=== PATIENT | male | born 1985 | race Caucasian/White ===

== ENCOUNTER → 2017-11-15 15:03 | Outpatient (CLI) | payer OTHER, SELFPAY | PROVIDERS: Visit Provider Physician Assistant | DX: R07.0 Pain in throat (principal) | CPT/HCPCS: 87081 ==

== ENCOUNTER 2023-04-20 09:45 | Emergency (ER) | payer OTHER, SELFPAY ==
[2023-04-20 09:46] VITALS: BP 166/101; PULSE 108; RESP 16; TEMP 36.7; O2SAT 100; BMI 42.0
--- NOTE | 2023-04-20 10:25 | CT_ITS ---
STUDY: CT ABDOMEN AND PELVIS WITH CONTRAST REASON FOR EXAM: Male, 37 years old. Umbilical hernia RADIATION DOSAGE (If Supplied By Facility): CTDIvol = ( 15.38 ) mGy, DLP = ( 1597.98 ) mGycm TECHNIQUE: IV 100mL Isovue-370 was administered. Transaxial images were obtained from the dome of the diaphragm to the symphysis pubis. Multiplanar coronal and sagittal images were reformatted. Individualized Dose Optimization Techniques Were Used For This CT. COMPARISON: No relevant prior comparison study available FINDINGS: The visualized lung bases are unremarkable. The visualized portions of the heart are within normal limits. Hepatic steatosis. 3.5 cm enhancing lesion in the dome of the liver could be due to hemangioma but difficult to accurately characterize at this time. Normal gallbladder and extrahepatic biliary system. Normal spleen. Normal pancreas. Normal bilateral adrenal glands. Normal visualized stomach. Normal in caliber small bowel loops. Fecal retention. No evidence of acute diverticulitis. The descending colon is not well distended. There is non-visualization of the appendix. No evidence of abdominal aortic aneurysm. No retroperitoneal adenopathy. Normal right kidney. Normal left kidney. Normal urinary bladder. Umbilical hernia containing fat. Mild degenerative changes of the spine. Posterior degenerative spur at the level of L5-S1. CT/Abdomen/Pelvis W IV Cont ONLY IMPRESSION: 1. No focal acute inflammatory process. 2. Umbilical hernia containing fat. 3. Enhancing right lobe liver lesion likely due to hemangioma. Correlation with nonemergent multiphase CT scan of the liver is recommended. 4. Hepatic steatosis. Electronically Signed: Maik Dominique MD at 12:10 [facility] ,
--- NOTE | 2023-04-20 10:25 | RAD_ITS ---
INDICATION: cough EXAMINATION/TECHNIQUE: X-RAY - XR Chest 1 View COMPARISON: Prior study dated: 07/13/2016. FINDINGS: LINES/DEVICES: None. LUNGS: No consolidation, edema or effusion. No pneumothorax. Hypoventilatory changes in the right lung base. MEDIASTINUM AND CARDIOVASCULAR STRUCTURES: Cardiac silhouette not enlarged. Central airways and mediastinal contour are unremarkable. BONES AND SOFT TISSUES: Unremarkable. RAD/Chest 1 View (Portable) IMPRESSION: No radiographic evidence of acute cardiopulmonary disease. Electronically Signed: Maik Dominique MD at 11:56 EST ,
--- NOTE | 2023-04-20 10:27 | ED.VIS.GI ---
HPI HPI - GI History of Present Illness Chief Complaint: Abd Pain Informant: patient Abdominal Pain/Flank Pain Onset: Today Context: Sudden Onset Timing: Continuous Location: - (Umbilical pain) Current Severity: Moderate Maximum Severity: Moderate Nausea/Vomiting/Emesis GI Symptom: Negative for Nausea or Vomiting Diarrhea/Melena/Hematochezia GI Symptom: Negative for Diarrhea, Melena or Hematochezia Associated Symptoms Associated Symptoms: Negative for Dysuria, Frequency or Hematuria Narrative Narrative: 37-year-old male prior appendectomy. History of hypertension for which he is on medications. Has had URI symptoms since Saturday. Fever. Today he noticed a bulge above his umbilicus. And abdominal pain. He did not eat anything this morning. He denies nausea, vomiting or diarrhea. No dysuria. He has had a fever. Prior similar symptoms: No Recent Illness/Hospitalization: No PFSH PFSH Home Medications cyclobenzaprine 10 mg tablet 10 mg PO TID PRN muscle spasm #20 tabs 07/16/18 [Rx Last Taken Unknown] ibuprofen 200 mg capsule 200 mg PO TID-QID PRN 07/16/18 [History Last Taken Unknown] prednisone 20 mg tablet 20 mg PO DAILY #18 tabs 07/16/18 [Rx Last Taken Unknown] Allergy/AdvReac Type Severity Reaction Status Date / Time No Known Allergies Allergy Verified 04/20/23 09:47 Family History Mother Cancer Breast cancer Heart disease Father Prostate cancer Surgical History History of appendectomy Social History Smoking Status: Current some day smoker tobacco type: pipe and cigars alcohol intake: current alcohol intake frequency: a few times a month Alcohol type: beer ROS ROS ED ROS Narrative . Fever. Abdominal pain. Review of Systems ROS Unobtainable: Denies due to encephalopathy Constitutional Constitutional ED: Reports fever(s); Denies chills ENT ENT ED: Denies ear pain Cardiovascular Cardiovascular: Denies chest pain Respiratory/Chest Respiratory/Chest: Reports cough; Denies dyspnea Gastrointestinal Gastrointestinal: Reports abdominal pain; Denies constipation, diarrhea, melena, nausea or vomiting Genitourinary Genitourinary ED: Denies dysuria or hematuria Musculoskeletal Musculoskeletal: Denies arthralgias Integumentary Denies abscess Neurologic Neurologic: Denies headache(s) Psychiatric Psychiatric: Denies anxiety Endocrine Endocrinology: Denies polydipsia Hematologic/Lymphatic Hematologic/Lymphatic: Denies easy bleeding Allergic/Immunologic Allergic/Immunologic ED: Denies mouth swelling EXAM Physical Exam Narrative Exam Narrative: 37-year-old male vital signs stable afebrile. HEENT exam unremarkable. Moist extremities. Neck nontender no lymphadenopathy. Lungs clear to auscultation bilaterally. No rales, rhonchi or wheezing. Equal symmetrical. Dry cough. Heart regular rhythm rate about 108 no murmur. Chest wall and ribs nontender. Abdomen soft. Nondistended. He has what appears to be a incarcerated hernia just proximal to his umbilicus and umbilical hernia also. The ventral hernia is tender to palpation at this time not reducible. Otherwise his abdomen is nontender. He has bowel sounds. No peritoneal signs. He is moving all 4 extremities. Nontender. He is awake and alert. Const Vital Signs: 04/20/23 09:46 Temperature 98.0 F Temperature Source Temporal Pulse Rate 108 H Respiratory Rate 16 Blood Pressure 166/101 H Blood Pressure Mean 122 Pulse Ox 100 Oxygen Delivery Method Room Air Positive well nourished and well developed; Negative for cachectic, contractures or unkempt General Appearance ED: well developed and NAD; Negative for unkempt, cachectic, contractures or pallor Nutritional Appearance: Negative for cachectic HEENT Reports moist mucous membranes normocephalic and atraumatic; Negative for trauma or tenderness Eyes PERRL and EOMs intact bilaterally General Eye ED: Negative for pale conjunctiva or scleral icterus Neck no lymphadenopathy, supple and no JVD General: Negative for tenderness Carotids: Negative for other Lymph Lymphatic: Negative for other Resp normal respiratory effort and clear to auscultation bilaterally Resp Narrative: Dry cough. Effort and Inspection: Negative for respiratory distress Auscultation: Negative for rales, rhonchi or wheezes Cardio regular rhythm, S1 normal heart sound, S2 normal heart sound and no murmurs; Negative for regular rate Rate: tachycardic Rhythm: Negative for abnormal rhythm GI non-distended and no masses; Negative for non-tender GI Narrative: Tender ventral hernia just proximal to the umbilicus. Appears to be an incarcerated ventral hernia. Inspection: Negative for abdominal distention Auscultation: normoactive bowel sounds Palpation: soft, tender and hernia; Negative for rigid, hepatomegaly, splenomegaly, mass, pulsatile mass or rebound tenderness present Back/Spine no CVA tenderness General Back: Negative for CVA tenderness Cervical Spine: Negative for cervical spine tenderness Thoracic Spine / Upper Back: Negative for thoracic spinal tenderness Lumbar Spine / Lower Back: Negative for lumbar spinal tenderness Coccyx: Negative for other Extremity full ROM General Extremety ED: Negative for edema or tenderness General Extremity: Negative for edema Neuro CN's II-XII intact bilaterally, moves all extremities and no sensory deficits noted Sensorium / Orientation: alert, oriented to person, oriented to place and oriented to time; Negative for orientation impaired, confused, lethargic or stuporous Motor Exam: strength 5/5 throughout Psych mental status grossly normal and thought process normal Appearance: Negative for unkempt Attitude: No agitated Mood & Affect: Negative for depressed, anxious or tearful Skin no wounds General Skin Exam: Negative for jaundice or pallor Lesions: no lesions Rashes: no rashes Trauma: Negative for abrasion Nails: Negative for discolored MDM MDM MDM Narrative Medical decision making narrative: 37-year-old male has URI symptoms. He has developed abdominal pain and what appears to be an incarcerated ventral hernia today. He may have a longstanding umbilical hernia. We treated with morphine and Zofran. IV fluids. I am getting a CAT scan not to diagnose the hernia but because he is also had fever which I think is from the URI but I want to rule out any type of abdominal infection and/or obstruction. I have already spoken to general surgery Dr. Andrew Yusuf. I am also getting a chest x-ray due to his cough and fever. Around 11 AM I was able to manually reduce his ventral hernia. Pain improved. Patient is doing well at 12:20 PM. I went over his test results with he and his . His CAT scan. He is also COVID-positive. I spoke to general surgery he would prefer to do his hernia repairs electively as an outpatient after he gets over COVID. Patient and are comfortable with the plan. Motrin and Tylenol for pain. Return if feeling worse. Fluids and rest. History & Record Review Discussion w/independent historian: Patient and Family Additional record(s) reviewed:: Prior inpatient record, Prior outpatient record, Prior ED visit and Prior labs Lab Data Attestation: I reviewed the patient's lab results. Lab results narrative: BC normal. White count of 5.5. H&H 14 and 44. Platelets 210. Electrolytes show a gap of 5 normal BUN of 13 creatinine 1.2. Glucose 157. Labs: Laboratory Results - last 24 hr 04/20/23 10:40 WBC 5.5 RBC 5.35 Hgb 14.6 Hct 44.9 MCV 83.9 MCH 27.3 MCHC 32.5 RDW Std Deviation 40.0 RDW Coeff of [place] 13.2 Plt Count 210 MPV 9.9 Immature Gran % (Auto) 0.400 Neut % (Auto) 63.0 Lymph % (Auto) 20.0 [place] % (Auto) 16.1 H Eos % (Auto) 0.0 Baso % (Auto) 0.5 Absolute Neuts (auto) 3.4 Absolute Lymphs (auto) 1.09 Nucleated RBC % 0 Sodium 137 Potassium 4.1 Chloride 105 Carbon Dioxide 27.0 Anion Gap 5 BUN 13 Creatinine 1.21 Estim Creat Clear Calc 99.07 Est GFR (MDRD) Af Amer 88 Est GFR (MDRD) Non-Af 72 BUN/Creatinine Ratio 10.7 Glucose 157 H Calcium 9.0 Radiography Diagnostic Testing: Clinical Impression(s) from Imaging Studies Abdomen/Pelvis CT 04/20/23 10:25 IMPRESSION: 1. No focal acute inflammatory process. 2. Umbilical hernia containing fat. 3. Enhancing right lobe liver lesion likely due to hemangioma. Correlation with nonemergent multiphase CT scan of the liver is recommended. 4. Hepatic steatosis. Electronically Signed: Maik Dominique MD at 12:10 EST , Chest X-Ray 04/20/23 10:25 IMPRESSION: No radiographic evidence of acute cardiopulmonary disease. Electronically Signed: Maik Dominique MD at 11:56 EST , Discharge Plan Triage Chief Complaint: Abd Pain ED Provider: Deshawn Valentino Dx/Rx/DC Orders Clinical Impression: COVID, Hernia, umbilical, Ventral hernia Instructions: Human Coronaviruses, ED Hernia (Adult) Prescriptions: No Action ibuprofen 200 mg capsule 200 mg PO TID-QID PRN cyclobenzaprine 10 mg tablet 10 mg PO TID PRN (Reason: muscle spasm) Qty: 20 0RF Rx Instructions: to be taken only after work hours on work days prednisone 20 mg tablet 20 mg PO DAILY Qty: 18 0RF Rx Instructions: 3 tablets daily for 3 days, then 2 tablets daily for 3 days, then 1 tablet daily for 3 days Primary Care Provider: Sven Dallas Referrals: Colin Yusuf MD [Med Staff - Active Staff] - As soon as possible Sven Dallas MD [Primary Care Provider] - Activity Restrictions/Additional Instructions: Fluids and rest for the COVID-19. Motrin and Tylenol for any fever and body aches. Also for the hernia pain. Call and follow-up with the general surgeon Dr. Andrew fang and he can discuss with you repair of both the umbilical and or ventral hernias. Return if increasing pain, intractable vomiting or feeling worse. Disposition Disposition: Home, Self Care
[2023-04-20] MEDS: morphine 8 MG/ML Syringe IV (10:39)
[2023-04-20] MEDS: Ondansetron 4 MG/2 ML Vial IV (10:39)
[2023-04-20] MEDS: 0.9% Normal Saline (1000mL) 1,000 ML 1000 ML IV (10:39)
[2023-04-20 11:00] LABS: Absolute Lymphocyte Count 1.09 X10^3/uL (0.83-4.51); Absolute Neutrophil Count 3.4 X10^3/uL (2.0-7.7); Basophil# 0.03 X10^3/uL; Basophil% 0.5 % (0-1); Hematocrit 44.9 % (40-54); Hemoglobin 14.6 g/dL (13.0-16.5); Lymphocyte # 1.09 X10^3/ul (0.83-4.51); Mean Corp Hgb Conc 32.5 g/dL (32-36); Mean Corpuscular Hgb 27.3 pg (27.0-32.0); Mean Corpuscular Volume 83.9 fL (80-94); Mean Platelet Vol. 9.9 fl (6.2-12.0); Monocyte# 0.88 X10^3/uL; Monocyte% 16.1 % (0-10); NRBC Flagged by Analyzer 0 % (0-5); Neutrophil # 3.44 X10^3/uL (2.7-7.7); Platelet Count 210 K/mm3 (150-450); RBC Distribution Width CV 13.2 % (11.6-14.6); Red Blood Count 5.35 M/mm3 (4.6-6.2); White Blood Count 5.5 K/mm3 (4.4-11.0)
[2023-04-20 11:11] LABS: Anion Gap 5 (5-15); BUN 13 mg/dL (7-18); BUN/Creat Ratio 10.7 RATIO (10-20); Chloride 105 mmol/L (98-107); Creatinine, Serum 1.21 mg/dL (0.70-1.30); EST Glomerular Filtration Rate 72 mL/min (>60); Est Glom Filt Rate - Afr Amer 88 mL/min (>60); Estimated Creatinine Clearance 99.07 ml/min; Glucose 157 mg/dL (74-106); Potassium 4.1 mmol/L (3.5-5.1); Sodium Level 137 mmol/L (136-145)
[2023-04-20 12:38] VITALS: BP 141/86; PULSE 94; RESP 16; O2SAT 98
== END 2023-04-20 12:39 | disposition home or self-care (01) ==
PROVIDERS: Emergency Provider Emergency Medicine; PCP Family Medicine; Visit Provider Emergency Medicine
DX: U07.1 COVID-19 (principal); K42.9 Umbilical hernia without obstruction or gangrene; I10 Essential (primary) hypertension; K43.9 Ventral hernia without obstruction or gangrene; Z90.49 Acquired absence of other specified parts of digestive tract; F17.290 Nicotine dependence, other tobacco product, uncomplicated
CPT/HCPCS: 71045; 74177; 80048; 85025; 87811; 96361; 96374; 96375; 99283; J7030; Q9967; J2405

== ENCOUNTER → 2023-05-07 | Outpatient (CLI) | payer OTHER, SELFPAY | END | disposition home or self-care (01) | LOC: LABSPEC 10:30 | PROVIDERS: PCP Family Medicine; Referring Provider Surgery; Visit Provider Surgery | DX: K64.9 Unspecified hemorrhoids (principal) | CPT/HCPCS: 87081 ==

== ENCOUNTER 2023-06-17 17:05 | Observation (INO) | payer OTHER, SELFPAY ==
[2023-06-17] VITALS (19 sets, daily range): BP systolic 112–155; BP diastolic 7–96; PULSE 79–105; RESP 12–18; TEMP 36.2–37.1; O2SAT 92–99; BMI 41.1
--- OUTSIDE RECORDS SUMMARY | 2023-06-17 06:11 | XMS RPT_ITS | CCD ---
Author Name Unknown Address [address] [place] [address] Organization [facility] Results Test Name Value Interpretation Reference Range Facil ity Summary Purpose Family History No Family History Records FoundNo Family History Records Found Advance Directives No Advanced Directives Records FoundNo Advanced Directives Records Found Additional Source Comments (unrecognized sect ion and content) No Status Records FoundNo Status Records Found INFORMATION SOURCE (unrecogn ized section and content) DATE CREATED AUTHOR AUTHOR'S SHY VIRGEN 07/23/2021 [facility] Ce marina Juarez FOR RECORDS PERTAINING TO PATIENTS WHO ARE OR HAVE BEEN ENROLLED IN A CHEMICAL DEPENDENCY/SUBSTANCEABUSE PROGRAM, SOME INFORMATION MAY BE OMITTED. This clinical summary was aggregated from multiple sources. Caution should be exercised in using it in the provision of clinical care. This summary normalizes information from multiple sources, and as a consequence, information in this document may materially change the coding, format and clinical context of patient data. In addition, data may be omitted in some cases. CLINICAL DECISIONS SHOULD BE BASED ON THE PRIMARY CLINICAL RECORDS. [employer] provides no warranty or guarantee of the accuracy or completeness of information in this document.
[2023-06-17] MEDS: Lactated Ringers 1,000 ML 15 ML IV ×2 (06:45→13:39)
--- NOTE | 2023-06-17 07:30 | SOF_PTH ---
PATHOLOGY RESULTS PATIENT: MAIA ECHEVARRIA LOC: MS3 U#:[id number] AGE/SX: 37/M [place] [facility] [place] RE06/17/[address]: Dr. Colin Yusuf MD : 1985 BED: 1 DIS: 06/18/2023 SPEC #: [id number] RECD: 06/18/23 07:23 STATUS: NINI PETTY #: [id number] SAIDA: 06/17/23 07:[address]: Colin Yusuf DEPT: SURGICAL PATHOLOGY RECD BY: Aubrie Swartz ENTERED: 06/18/23 07:26 SP TYPE: SOFT TISS OTHR DR: Dr. Sven Dallas MD Tissues: Adipose tissue Procedures: Surgery Specimen Level III HEADER OPERATION: Laparoscopic ventral/umbilical hernia repair PRE-OP DIAGNOSIS: Umbilical hernia TISSUE SUBMITTED: Incarcerated fat MICROSCOPIC DIAGNOSIS Umbilical hernia, herniorrhaphy: Fibrosis, fat necrosis, recent hemorrhage and chronic inflammation. AM:alyssa 06/19/2023 MICROSCOPIC DESCRIPTION Slides are reviewed. GROSS DESCRIPTION Received in fixative is one container labeled with the patient's name and designated incarcerated fat. The specimen consists of adipose tissue measuring 4.5 x 5.0 x 2.0 cm. Focal area shows a cystic area measuring 2.0 cm in greatest dimension. Sections of other areas reveal yellowish-orange cut surfaces. No obvious well-defined mass lesion is identified. Light Truck [employer] sections are submitted in two cassettes. / SJ:alyssa 06/18/2023 TC:3 CPT: 78026
--- NOTE | 2023-06-17 07:47 | PCM.HP.BLA ---
History and Physical Date of Service: 05/07/23 MR#: [id number] Acct: [id number] Name: MAIA COURTNEY Rep #: [id number] : 1985 Provider: Dr. Colin Yusuf MD Age/Sex: 37/M Location: [facility] Status: Signed Intake Vital Signs 04/20/2309:46 05/07/2308:01 Height 6 ft 2 in 6 ft 2 in Weight: 330 lb BMI 42.3 BP 138/89 H Blood Pressure Location Rt brachial Position Sitting Respiration 18 Intake Visit Reasons: ED - HERNIA Chief Complaint: umbilical hernia Plate Stacker Required: No Is patient in pain?: No Allergies No Known Allergies Allergy (Verified 05/07/23 08:01) Medications rosuvastatin 5 mg tablet mg PO 05/07/23 [History Confirmed 05/07/23] PFSH Medical History (Updated 05/07/23 @ 20:[address] Colin Yusuf MD) High cholesterol Surgical History (Updated 05/07/23 @ 08:00 by Maryjo Malagon) History of appendectomy History of facial surgery Family History (Updated 05/07/23 @ 08:00 by Maryjo Malagon) Mother Cancer Breast cancer Heart diseaseFather Prostate cancer Hypertension Social History Smoking Status: Current some day smoker tobacco type: pipe and cigars alcohol intake: current alcohol intake frequency: a few times a month Alcohol type: beer HPI HPI HPI: Patient is a 37-year male who presents for consultation regarding an umbilical hernia after recent ER visit. This finding was first noticed by patient back in approximately 2013. However, he believes he developed second hernia during his convalescence with a recent bout of COVID. He is referred from EM. He presents today with his . Patient is not able to recall how this occurred specifically but shares that he believes is may be related to a appendectomy and Mecke's excision performed in 2013. He also shares that during a particular coughing fit he developed significant abdominal pain that has yet to fully leave him. As an example he states that it is still too uncomfortable to lay on his side and his adds that he will come home from work early some days due to the discomfort. Significantly he denies that there have been no changes to his bowel habits. He is actively trying to minimize activity that incites pain at his hernia and shares that sitting and walking even can leave him feeling uncomfortable. Patient has a personal history of smoking and he details this to include cigars and pipes but he hasn't smoked in nearly a month. Patient has no personal history of recurrent cutaneous infections including staph. He confirms a gradual weight increase which he blames on increased calories (but he reports having made some healthy eating choices of late) and increased stress at work Pertinent surgical history includes: lap appendectomy and Meckel's diverticulectomy. ROS General General: No weight change, appetite, fatigue, colon cancer, breast cancer or weakness HEENT HEENT: No difficulty swallowing, eye injury, eye surgery, swollen glands or hoarseness Endo Endocrine: No thyroid disease, diabetes mellitus, thyroid cancer, Hair loss, heat intolerance or cold intolerance Skin Skin: No rash or changing moles Breast Breast: No left breast lump, right breast lump, nipple discharge, breast pain, abnormal mammogram, abnormal US or breast enlargement Musc Musculoskeletal: No back problems, arthritis, rheumatoid arthritis, gout or joint pain Cardio Cardiovascular: No murmur, pacemaker, heart disease, atrial fibrillation, high blood pressure, heart attack, heart stent, palpitations, shortness of breat with exertion or chest pain Psych Psychiatric: No depression, anxiety or hearing voices Resp Respiratory: No shortness of breath, No sleep apnea, No cough, No COPD, No asthma, No emphysema and No wheezing Gastro Gastrointestinal: No abdominal pain, No nausea or vomiting, No diarrhea, No constipation, No blood in stool, No acid reflux, No hemorrhoids, No ulcers, No gallbladder problem and No black,tarry stools Rey Hematologic: No blood thinners, No blood disorders, No bleeding, No anemia and No blood clots Neuro Neurologic: No system reviewed and no additional complaints, except as documented, No as per HPI, No abnormal gait, No abnormal hearing, No abnormal movements, No abnormal speech, No behavioral changes, No burning sensations, No confusion, No convulsions, No disequilibrium, No dizziness, No localized weakness, No frequent falls, No headache(s), No lack of coordination, No loss of vision, No memory loss, No numbness, No other visual disturbances, No radicular pain, No restless legs, No sensory deficit, No syncope, No tingling, No tremor(s), No weakness and No other Exam Const General: cooperative and anxious Orientation: alert, awake and oriented x3 Resp Effort & Inspection: normal respiratory effort GI Other: obese, visible umbilical hernia with at least partially incarcerated fat. Patient's tenderness precludes further exam Assessment and Plan Assessment and Plan (1) Umbilical hernia without obstruction and without gangrene: Status: Chronic Comment: Patient is a 37 yo M who presents for what appears to be an acute increase in pain symptoms from a chronic umbilical hernia. After examining patient I believe his pain is at least in part attributable to intermittent fat incarceration. By review of his CT imaging (also performed with he and his ) it is evident that he has two separate defects by about a centimeter bridge of abdominal fascia. Given his symptoms I believe hernia repair is indicated yet patient's present BMI and tobacco habit do put him at increased risk for recurrence. These risks were shared with him and his . Yet surgical options were discussed and I recommended a minimally-invasive approach to hopefully decrease his wound complication risk and achieve a large mesh overlap. Since we do not have immediate availability for elective cases I suggested a compromise to set a date for the next availability which Mr. Courtney in turn committing to trying to cut about 15lbs through dieting and limited aerobic exercise as he tries to bring his BMI under 40. Additionally for the interim he is given red flag warning signs to beware of and activity to avoid to limit his risk for emergent presentation. Mr. Courtney expresses both understanding and agreement. Plan: - Nasal swab to screen for Staph colonization - Schedule for robot assisted umbilical hernia repair with mesh Orders: I have examined the patient and the H&P has been reviewed. There are no clinical changes since date of exam. Patient reports that he has been trying to be active in the gym with cardio activity and has lost some weight. Otherwise he denies any health changes. He states that he feels well and is simply just nervous because he is undergoing surgery. Procedure and post procedure expectations were reviewed with patient and his spouse. No further questions or offered. Therefore we will proceed to the operating room for robot-assisted umbilical hernia repair with mesh.
[2023-06-17] MEDS: Cefazolin 3 GM in 0.9% Normal Saline (100mL Bag) 100 ML IV (09:05)
[2023-06-17] MEDS: 0.9% Normal Saline (Pres. free 10 ML Vial (11:25)
[2023-06-17] MEDS: Bupivacaine 0.25% 30 ML Vial (11:25)
[2023-06-17] MEDS: BUPIVACAINE LIPOSOME/PF 20 ML VIAL OPERA.SITE (11:25)
--- NOTE | 2023-06-17 11:27 | PCM.OPRPT ---
Report of Operation Date of Procedure: 06/17/23 Pre-Operative Diagnosis: Umbilical hernia with incarcerated fat Post-Operative Diagnosis: Umbilical hernia and epigastric hernia?both with incarcerated fat Surgery/Procedure Performed:: Hybrid?open and laparoscopic umbilical hernia repair with mesh Surgeon: Colin Yusuf knife setter assembler: Malena Mendoza Type of Anesthesia: General/Supplemental Anesthesiologist: Zoran Herrmann Specimen's removed: Incarcerated fat (omental) Estimated Blood Loss (mL): 25 Description of Procedure: After appropriate identification in the preoperative holding area patient was brought to the operating room where he was positioned supine on the operating room table. Preoperative antibiotics were administered during this time. Patient was then induced with a general anesthetic and is abdomen was prepped and draped in usual sterile fashion. A formal timeout was conducted to confirm both patient and the procedure amongst those present. I created a curvilinear infraumbilical incision and this incision was made sharply and deepened down through the dermis and subcu tissue. I used a hemostat and right angled clamp to bluntly dissect out and encircle the umbilical stalk. I then sharply removed the overlying skin from the stalk. Gradually this was freed from the underlying fascia until we were able to visualize patient's fascial defect. This measured 2 cm round and contained incarcerated peritoneal fat. As the fascia was completely cleared of overlying attachments, I also tried to clear any adherent omentum to the inner diameter of this fascial defect using sharp dissection. I then palpated the underside of the fascia and additional omental attachments that I could not reach digitally through this opening. Superiorly I also identified a small layer fascial defect approximately 1 cm cephalad to our index defect. I circumferentially freed the hernia contents from the edge of the fascia. For the closure of this fascial defect, I used 2-0 Ethibond sutures in an interrupted fashion with a qxbynr-at-ylkwk technique. This resulted in a nice closure of the fascial defect. The sutures were left untied and I placed a 12 mm balloon trocar through the opening. A laparoscope was introduced through this opening and I confirmed the finding of numerous fatty attachments to the underside of the abdominal wall. To facilitate completion of the operation 5 mm trocars were placed in the left upper quadrant, left mid abdomen, and left lower quadrant under laparoscopic visualization. A fourth 5 mm trocar was placed in the right upper quadrant. With this port configuration I performed a tap block using a mixture of Exparel, Marcaine, and saline under laparoscopic guidance. I then used a laparoscopic LigaSure device to take down the fatty attachments to the peritoneum as well as takedown part of the patient's falciform ligament to provide direct contact to the fascia by our mesh. Once this was completed I proceeded with placement of [address] mesh with echo positioning through our 12 mm balloon trocar and the trocar was removed. The balloon on the underside of the mesh was inflated and a hemostat was placed across the insufflation tubing. Then our 2-0 Ethibond sutures across the umbilical hernia defect were tied at the fascia. The mesh was tacked to the underside of the abdominal wall in 4 quadrants using our secure strap Vicryl tacker. Then the balloon on the underside of the mesh was let down and was laparoscopically removed from the mesh. Both the mesh and the suture coils attaching it to the mesh were removed from the peritoneum under laparoscopic visualization through the patient's left lateral port site and the 5 mm port was replaced. The mesh was then completely tacked in place using serial firings from our secure strap tacker. Once I was satisfied with the apposition of the mesh to the underside of the abdominal wall patient's abdomen was desufflated and turned attention to closure of the patient's umbilical hernia defect. However before proceeding I palpated a very firm, golf ball?sized area just cephalad to the patient's hernia defect and with further exploration confirmed that this was involved infarcted omentum over top of patient's more cephalad hernia defect. Finding this omental plug above patient's more superior hernia I used blunt dissection to from the surrounding connective tissue and then amputated it with application of electrocautery and LigaSure bipolar energy. Lastly I undertook closure of above defect with additional 2 Ethibond suture. Wanting to be sure I had not disrupted the mesh deeply with this manipulation the abdomen was reinsufflated and the mesh was inspected. It was found to be in a stable state, however, I did proceed with placement of a couple of additional tacks along the midline to further secure the mesh in the location of the patient's second hernia. The pneumoperitoneum was evacuated for a final time. The skin of the umbilical stalk was tacked down to the fascia with a interrupted 3-0 Vicryl. The same 3-0 Vicryl was used to perform a number of interrupted sutures along a deep dermal plane to reapproximate the wound and close down some of the space from our dissection down to the fascia. Lastly, a 4-0 Monocryl was used to close the skin in a running subcuticular technique. The same suture was used to close the remaining port sites also in a subcuticular fashion. Steri's were applied and a rolled Telfa was placed into the umbilical concavity being topped with a and OpSite dressing. Steri-Strips and OpSite dressings were applied to the remaining port sites. This concluded the formal portion of the case and the patient was allowed to awaken from general anesthetic. He was taken to PACU for ongoing recovery. Grafts/Implants Used: Ventralight ST w echo PS positioning, ref [id number], lot [id number] Complications None Admit VTE Documentation VTE Mechan Device Prophylaxis: SCD's Procedures Digestive 40xxx-49xxx: 46246 RPR AA HRN 1ST < 3 CM RDC
--- NOTE | 2023-06-17 11:27 | EX.PCM.DISCH ---
Documented by User: Dr. Colin Yusuf MD 06/18/23 09:56 Discharge Instructions Diet Discharge Diet: No restrictions Activity Discharge Activity: May Not Drive (While taking narcotic pain medication) and May Shower May shower in (days): 2 Ice area for (Minutes): 20 Lifting Restrictions: No lifting greater than 10 pounds for the next 5 weeks Dressing / Incision Call your doctor if your incision/area has: Continuous Slow Oozing, Increased Pain/ Swelling, Increased Redness, Foul Smelling Discharge and Swelling at the incision site Call your doctor if you observe: Fever of 101 or Higher, Inability to urinate and Inability to have a bowel movement Change Dressing in: 2 days (Please leave Steri-Strips intact until they fall off spontaneously or are taken off at your follow-up visit) Remove Dressing in: 2 days (please leave umbilical dressing in place for 5 days postop) Cleanse incision/area with: Soap & Water and Keep Dressing Clean & Dry Follow Up Care Please Follow Up With: Cloin Yusuf MD When: 1-2 weeks postop Test Results: Test results from this visit will be discussed in further detail at your follow-up appointment, if applicable. Discharge Plan Admission Primary Reason for Your Visit: Umbilical hernia repair Attending Provider: Colin Yusuf Primary Care Provider: Sven Dallas Instructions Additional Instructions / Restrictions: Hernia Diet ? Start light with soups and soft bland foods. You may advance diet as tolerated. Activity ? You may drive in 3-5 days but not while taking narcotic pain medication. ? I encourage walking. You may go up steps, one at a time. ? Do not swim or use hot tubs for 2 weeks. ? For comfort, you may use warm compresses or ice as needed for 15-20 minutes at a time. Lifting ? You may lift up to 10 pounds for 5 weeks. Dressings/Incision ? You may shower OVER your plastic dressings starting tomorrow ? Do NOT tub bathe for 1 week ? Remove 4 plastic dressings tomorrow. leave the belly button dressing in place for 5 days ? When plastic dressings are removed, you will find steri strips. It is okay to continue showering with them in place, pat them dry. ? You may remove steri-strips after 1 week. We recommend getting them soaking wet for easier removal. Medications ? Anesthesia used during surgery and pain medications may cause constipation. I recommend initiating Miralax daily until return of your normal bowel habits. ? As long as you are not intolerant to Tylenol, acetaminophen, ibuprofen, Motrin, Advil, Aleve, or similar medications, I would recommend transitioning to these [id number] medicines as soon as possible instead of continued use of narcotic pain medication. Follow up ? You should call [facility] soon after surgery, at [phone] option 1 to make a follow up appointment for 10-14 days after your surgery. Discharge Orders/Prescriptions Prescriptions: New oxycodone 5 mg tablet 5 mg PO Q6H PRN (Reason: pain) 5 Days Qty: 14 0RF Continued rosuvastatin 5 mg tablet 5 mg PO QHS Patient Comments: take 1 tablet by mouth once daily Referrals / Follow Up: Sven Dallas MD [Primary Care Provider] - Colin Yusuf MD [Med Staff - Active Staff] - Disposition Disposition (needs filled in before D/C Order can be placed): Home, Self Care Documented by User: Michaela FINK PA-C 06/18/23 07:59 Discharge Instructions Diet Discharge Diet: Light diet - advance as tolerated Follow Up Care When: Please call to schedule a post-operative appointment at [phone] for 10-14 days following surgery Discharge Plan Admission Primary Reason for Your Visit: Umbilical hernia repair Attending Provider: Colin Yusuf Primary Care Provider: Sven Dallas Instructions Additional Instructions / Restrictions: Hernia Diet ? Start light with soups and soft bland foods. You may advance diet as tolerated. Activity ? You may drive in 3-5 days but not while taking narcotic pain medication. ? I encourage walking. You may go up steps, one at a time. ? Do not swim or use hot tubs for 2 weeks. ? For comfort, you may use warm compresses or ice as needed for 15-20 minutes at a time. Lifting ? You may lift up to 10 pounds for 5 weeks. Dressings/Incision ? You may shower OVER your plastic dressings starting tomorrow ? Do NOT tub bathe for 1 week ? Remove 4 plastic dressings tomorrow. leave the belly button dressing in place for 5 days ? When plastic dressings are removed, you will find steri strips. It is okay to continue showering with them in place, pat them dry. ? You may remove steri-strips after 1 week. We recommend getting them soaking wet for easier removal. Medications ? Anesthesia used during surgery and pain medications may cause constipation. I recommend initiating Miralax daily until return of your normal bowel habits. ? As long as you are not intolerant to Tylenol, acetaminophen, ibuprofen, Motrin, Advil, Aleve, or similar medications, I would recommend transitioning to these [id number]-[id number] medicines as soon as possible instead of continued use of narcotic pain medication. Follow up ? You should call [facility] soon after surgery, at [phone] option 1 to make a follow up appointment for 10-14 days after your surgery. Discharge Orders/Prescriptions Prescriptions: New oxycodone 5 mg tablet 5 mg PO Q6H PRN (Reason: pain) 5 Days Qty: 14 0RF Continued rosuvastatin 5 mg tablet 5 mg PO QHS Patient Comments: take 1 tablet by mouth once daily Referrals / Follow Up: Sven Dallas MD [Primary Care Provider] - Colin Yusuf MD [Med Staff - Active Staff] - Disposition Disposition (needs filled in before D/C Order can be placed): Home, Self Care
[2023-06-17] MEDS: oxyCODONE 5 MG Tablet PO ×2 (14:48→21:38)
[2023-06-17] MEDS: 0.9% Normal Saline (1000mL) 1,000 ML 50 ML IV (17:36)
[2023-06-17] MEDS: HYDROmorphone 0.5 MG/0.5 ML SYRINGE IV (17:40)
[2023-06-17] MEDS: Acetaminophen 500 MG Tablet PO (21:37)
[2023-06-18 00:56] VITALS: BP 101/65; PULSE 95; RESP 18; TEMP 36.8; O2SAT 98
[2023-06-18] MEDS: Acetaminophen 500 MG Tablet PO (03:53)
[2023-06-18] MEDS: oxyCODONE 5 MG Tablet PO ×2 (03:54→10:00)
[2023-06-18 05:56] VITALS: BP 102/54; PULSE 78; RESP 18; TEMP 36.6; O2SAT 98
--- NOTE | 2023-06-18 07:50 | PN.SURG_ITS ---
Subjective Subjective Patient evaluated resting comfortably in bed. He notes incisional pain/discomfort. He denies nausea, vomiting, fever. he states he has urinated multiple times after the straight cath last evening. Patient voices readiness to be discharged and to go home. Objective Data Objective Data Vital Signs: Vital Signs Temp Pulse Resp BP Pulse Ox O2 Del Method O2 Flow Rate 97.8 F 78 18 102/54 L 98 Room Air 2 06/18/23 05:56 06/18/23 05:56 06/18/23 05:56 06/18/23 05:56 06/18/23 05:56 06/18/23 05:56 06/17/23 13:45 Oxygen Flow Rate (L/min) 2 Oxygen Delivery Method Room Air Weight: 320 lb 0.015 oz Body Mass Index (BMI) 41.1 Intake & Output: Intake and Output for Last 24 Hours 06/16/23 06/17/23 06/18/23 23:59 23:59 23:59 Intake Total 2115 / 2115 755.75 / 755.75 Output Total 800 / 800 Balance 1315 / 1315 755.75 / 755.75 Physical Exam GI GI Narrative: Abdomen- soft, obese. Incisions c/d/i. No erythema or infection noted. Assessment & Plan Assessment/Plan (1) Umbilical hernia without obstruction and without gangrene: PLAN: Discharge criteria met Plan for discharge today Capacity Legal Service [employer] Driver Reflex Medical hold order details:: IF a medical hold is selected below, a suggested order for a MEDICAL HOLD will reflex upon signing the document. Next of kin: [place] law dictates a PRIORITY LIST for identifying legal decision-maker/legal next of kin in the following order (LNOK): 1st: The patient?s legal guardian, if any 2nd: The patient's spouse (if status is questionable, consult Risk Management) 3rd: The patient?s adult child(kendrick) (majority, if multiple children) 4th: The patient?s parents 5th: The patient?s adult siblings (majority, if multiple children siblings) Charges/Coding Visit Charges Inpatient E&M: 53045 Subs Hosp L1 (no charge; post-op)
[2023-06-18] MEDS: Polyethylene Glycol 3350 17 GM PACKET PO (08:40)
--- NOTE | 2023-06-18 09:40 | CASEMGMT ---
MINERVA CM into pt room, pt states he feels safe to return home. Pt reports being I in ADL's typically and pt will be able to assist him as needed. Pt denies any homegoing needs.
[2023-06-18 09:49] VITALS: BP 123/76; PULSE 73; RESP 18; TEMP 36.6; O2SAT 98
--- NOTE | 2023-06-18 10:27 | PHA.DC.MR.R ---
Pharmacy [place] Med Reconciliation Pharmacy Service has performed discharge medication reconciliation for this patient. Medication education papers prepared, patient discharge before I was able to intake counselor. The patient's discharge medication list was reviewed for discrepancies and discrepancies were resolved. Medications at Discharge Home Medications rosuvastatin 5 mg tablet 5 mg PO QHS 05/07/23 oxycodone 5 mg tablet 5 mg PO Q6H PRN pain 5 days #14 tabs 06/17/23
--- OUTSIDE RECORDS SUMMARY | 2023-06-18 12:30 | XMS RPT_ITS | CCD ---
Author Name Unknown Address [address] [place] [address] Organization [facility] Results Test Name Value Interpretation [...] DATE CREATED AUTHOR AUTHOR'S SHY VIRGEN 07/23/2021 [facility] Ce marina Juarez FOR RECORDS [...] BE BASED ON THE PRIMARY CLINICAL RECORDS. [employer] provides no warranty or guarantee of the accuracy or completeness of information in this document.
== END 2023-06-18 10:05 | disposition home or self-care (01) ==
LOC: SDC 06-18 11:54 → MS3 06-18 11:54
PROVIDERS: Admitting Provider Surgery; PCP Family Medicine; Referring Provider Surgery; Visit Provider Surgery
PROC: 0WQF4ZZ Repair Abdominal Wall, Percutaneous Endoscopic Approach (ICD-10-PCS; CPT 49592; principal; 2023-06-17 07:10)
DX: K42.0 Umbilical hernia with obstruction, without gangrene (principal); E78.00 Pure hypercholesterolemia, unspecified; F17.290 Nicotine dependence, other tobacco product, uncomplicated; Z79.899 Other long term (current) drug therapy; Z86.16 Personal history of COVID-19
CPT/HCPCS: 49592; 00750; 88304; 94668; 99221; 99252; J7030; J7120; G0378; G0463; J2405; J3490